=== PATIENT | male | born 1940 | race Hispanic/Latino ===

== ENCOUNTER 2020-04-05 17:08 | Emergency (ER) | payer MEDICARE ==
[~2020-04-05] VITALS: Ht 312.4 cm; Wt 63.5 kg
[~2020-04-05 17:08] MED LIST: BAYER81 MG PO; COUMADIN5 MG PO; FERROUS SULFAT325 MG PO; FINASTERIDE5 MG PO; LANTUS100 UNITS/ SQ; LASIX20 MG PO; LASIX40 MG IV; LEVOTHYROXINE25 MCG PO; LISINOPRIL5 MG PO; LORAZEPAM1 MG PO; NOVOLOG100 UNIT/1 SQ; PROTONIX20 MG PO; TAMSULOSIN HCL0.4 MG PO; TROSPIUM CHLORI20 MG PO; WARFARIN SODIU2.5 MG PO; Z.0.FLOMAX0.4 MG PO; Z.0.LANTUS100 UNIT/1 SQ; Z.0.LEXAPRO10 MG PO; Z.0.LIPITOR80 MG PO; Z.0.LISINOPRIL5 MG PO; Z.0.NOVOLOG100 UNIT/ SQ; Z.0.PLAVIX75 MG PO; [UNRECOGNIZED DRUG - OTHER] PO
--- NOTE | 2020-04-05 17:56 | NUR ---
REPORT TO RONNY SHARMA
--- NOTE | 2020-04-05 18:28 | NUR ---
PT DENIES ABD [PAIN AT THIS TIME, Dr Reveles office given update on patient.
--- OUTSIDE RECORDS SUMMARY | 2020-04-05 18:35 | XMS REPORT | Continuity of Care Document ---
Author Author [facility] Organization [facility] Address [address] [place] [address] Phone Unavailable Care Team Providers Care Feed Handler Name Role Phone RHETT ANDREA Attphys Unavailable Problems This patient has no known problems. Allergies, Adverse Reactions, Alerts This patient has no known allergies or adverse reactions. Medications This patient has no known medications. Procedures This patient has no known procedures. Encounters Start Date/Time End Date/Time Encounter Type Admission Type [facility] Care Department Encounter ID Source 2020-03-31 00:00:00 2020-03-31 00:00:00 Outpatient JAKE ANDREA [facility] [id number] [facility] 2020-03-31 00:00:00 2020-03-31 00:00:00 Outpatient JAKE ANDREA [facility] [id number] [facility] 2020-03-31 00:00:00 2020-03-31 00:00:00 Outpatient JAKE ANDREA [facility] [id number] [facility] 2020-03-31 00:00:00 2020-03-31 00:00:00 Outpatient JAKE ANDREA [facility] [id number] [facility] 2020-03-31 00:00:00 2020-03-31 00:00:00 Outpatient JAKE ANDREA [facility] [id number] [facility] Results This patient has no known results.
--- NOTE | 2020-04-05 18:48 | Emergency Department Note ---
History of Present Illnes History of Present Illness Chief Complaint: General Medicine Complaints History of Present Illness This is a 80 year old male Chief Complaint Comment PT SENT HERE BY DR ORTIZ FOR LAB WORK, PT WAS TOLD HE WAS ANEMIC ON 02/19/20, PT DENIES PAIN OR ANY SYMPTOMS AT THIS TIME. . Historian: Patient, Family Member Arrival Mode: Car Onset (how long ago): week(s) (2) Location: WEAKNESS Quality: GENERALIZED Radiation: Denies non-radiation, Denies back, Denies neck, Denies extremity, Denies abdomen, Denies periumbilical, Denies flank, Denies proximal, Denies distal, Denies other Severity: mild Onset quality: gradual Duration (how long): week(s) (2) Timing of current episode: constant Progression: unchanged Chronicity: new Context: Denies recent illness, Denies recent surgery, Denies recent immobilization, Denies recent travel, Denies trauma/injury, Denies new medications, Denies hx of DVT/PE, Denies non-compliance w/ medications, Denies other Relieving factors: none Exacerbating factors: none Associated symptoms: Reports weakness; Denies denies other symptoms, Denies confusion, Denies chest pain, Denies cough, Denies diaphoresis, Denies fever/chills, Denies headaches, Denies loss of appetite, Denies malaise, Denies nausea/vomiting, Denies rash, Denies seizure, Denies shortness of breath, Denies syncope, Denies other Treatments prior to arrival: none Past Medical/Family History Physician Review I have reviewed the patient's past medical and family history. Any updates have been documented here. 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 Social History Smoking Cessation: Never Smoker Counseling Performed: No Alcohol Use: None Any Illegal Drug Use: No Other Last Tetanus: UNKNOWN Any Pre-Existing Lines (PICC,: No Review of Systems Review of Systems Constitutional: Reports as per HPI EENTM: Reports no symptoms Cardiovascular: Reports no symptoms Respiratory: Reports no symptoms Gastrointestinal: Reports no symptoms Genitourinary: Reports no symptoms Musculoskeletal: Reports no symptoms Integumentary: Reports no symptoms Neurological: Reports no symptoms Psychological: Reports no symptoms Endocrine: Reports no symptoms Hematological/Lymphatic: Reports no symptoms Physical Exam Related Data Allergies: Coded Allergies: iodine (Verified Allergy, Unknown, 04/08/14) vancomycin (Verified Allergy, Unknown, 04/08/14) Triage Vital Signs Vital Signs Date Time Temp Pulse Resp B/P (MAP) Pulse Ox O2 Delivery O2 Flow Rate FiO2 04/05/20 17:30 99.1 80 16 154/68 98 Room Air Vital signs reviewed: Yes Physical Exam CONSTITUTIONAL Constitutional: Present well-developed, Present well-nourished HENT HENT: Present normocephalic, Present atraumatic, Present oropharynx clear/moist, Present nose normal HENT L/R: Present left ext ear normal, Present right ext ear normal EYES Eyes: Reports PERRL, Reports conjunctivae normal; Denies EOM normal, Denies lids normal, Denies left eye discharge, Denies right eye discharge, Denies scleral icterus, Denies other NECK Neck: Present ROM normal; Absent supple, Absent thyromegaly, Absent tracheal deviation, Absent stridor, Absent JVD, Absent cervical adenopathy, Absent carotid bruit, Absent other PULMONARY Pulmonary: Present effort normal, Present breath sounds normal; Absent respiratory distress, Absent rales, Absent rhonchi, Absent chest tenderness, Absent other CARDIOVASCULAR Cardiovascular: Present regular rhythm, Present heart sounds normal, Present capillary refill normal, Present normal rate; Absent irregular rhythm, Absent intact distal pulses, Absent tachycardia, Absent bradycardia, Absent murmur, Absent gallop, Absent friction rub, Absent palpable pulses, Absent strong pulses, Absent weak pulses, Absent LLE edema, Absent RLE edema, Absent other GASTROINTESTINAL Abdominal: Present soft, Present nontender, Present bowel sounds normal; Absent distension, Absent tender, Absent guarding, Absent mass, Absent rebound, Absent hernia, Absent left CVA tenderness, Absent right CVA tenderness, Absent other GENITOURINARY Genitourinary: Present exam deferred; Absent penis normal, Absent rectum normal, Absent prostate normal, Absent guaiac result, Absent penis tenderness, Absent other SKIN Skin: Present warm, Present dry MUSCULOSKELETAL Musculoskeletal: Present ROM normal NEUROLOGICAL Neurological: Present alert, Present oriented x 3, Present no gross motor or sensory deficits PSYCHOLOGICAL Psychological: Present mood/affect normal, Present judgement normal Results Laboratory Lab results reviewed: Yes Assessment & Plan Medical Decision Making MDM ANEMIA DEHYDRATION Reassessment Reassessment BETTER Assessment & Plan Final Impression: (1) Weakness (2) Anemia (3) Dehydration Depart Disposition: HOME, SELF-CARE Last Vital Signs Date Time Temp Pulse Resp B/P (MAP) Pulse Ox O2 Delivery O2 Flow Rate FiO2 04/05/20 17:30 99.1 80 16 154/68 98 Room Air Home Meds Reported Medications Furosemide (LASIX) 40 Mg Tablet, 40 MG IV DAILY, #30 TAB 08/19/14 Tamsulosin Hcl (TAMSULOSIN HCL) 0.4 Mg Cap.er.24h, 0.4 MG PO DAILY 08/19/14 Lorazepam (LORAZEPAM) 1 Mg Tablet, 1 MG PO Q6H PRN for ANXIETY, TAB 08/19/14 Warfarin Sodium (WARFARIN SODIUM) 2.5 Mg Tablet, 2.5 MG PO DAILY, #30 TAB 08/19/14 Trospium Chloride (TROSPIUM CHLORIDE) 20 Mg Tablet, 60 MG PO DAILY 08/19/14 Pantoprazole Sodium (PROTONIX) 20 Mg Tablet.dr, 40 MG PO DAILY 08/19/14 Insulin Aspart (NOVOLOG) 100 Unit/1 Ml Cartridge, 6 UNIT SQ TID 08/19/14 Lisinopril (LISINOPRIL) 5 Mg Tablet, 5 MG PO DAILY 08/19/14 Levothyroxine Sodium (LEVOTHYROXINE SODIUM) 25 Mcg Tablet, 25 MCG PO DAILY 08/19/14 Furosemide (LASIX) 20 Mg Tablet, 20 MG PO DAILY, #30 TAB 08/19/14 Insulin Glargine (LANTUS) 100 Units/Ml Ml, 10 UNIT SQ HS 08/19/14 Finasteride (FINASTERIDE) 5 Mg Tablet, 5 MG PO DAILY, #30 TAB 08/19/14 Ferrous Sulfate (FERROUS SULFATE) 325 Mg Tablet, 325 MG PO DAILY 08/19/14 CAMI MORRISON MD Apr 05, 2020 18:48
[2020-04-05 18:57] VITALS: BP 141/69
== END 2020-04-05 18:59 | disposition home or self-care (01) ==
LOC: FSED 18:00
DX: D64.9 Anemia, unspecified (principal); R53.1 Weakness; E86.0 Dehydration; I10 Essential (primary) hypertension; E11.9 Type 2 diabetes mellitus without complications; E78.5 Hyperlipidemia, unspecified; Z89.512 Acquired absence of left leg below knee; Z95.1 Presence of aortocoronary bypass graft; Z95.810 Presence of automatic (implantable) cardiac defibrillator
CPT/HCPCS: 80053; 80076; 85025; 99283

== ENCOUNTER → 2020-04-19 | Day surgery (SDC) | payer MEDICARE ==
[2020-04-15 11:57] LABS: BASOPHILS # (AUTO) 0.1 (0.0-0.1); BASOPHILS % 0.8 % (0.0-1.0); EOSINOPHILS # (AUTO) 0.2 (0.0-0.4); EOSINOPHILS % 2.6 % (0.0-6.0); HEMATOCRIT 36.5 % (38.2-49.6); HEMOGLOBIN 11.1 g/dL (14.0-18.0); LYMPHOCYTES # (AUTO) 1.6 (1.0-3.2); LYMPHOCYTES % 22.3 % (18.0-39.1); MEAN CORPUSCULAR HEMOGLOBIN 25.9 pg (28-32); MEAN CORPUSCULAR HGB CONC 30.4 g/dL (31-35); MEAN CORPUSCULAR VOLUME 85.3 fL (81-99); MONOCYTES # (AUTO) 0.6 (0.2-0.8); MONOCYTES % 8.6 % (4.4-11.3); NEUTROPHILS # (AUTO) 4.8 (2.1-6.9); NEUTROPHILS % 65.4 % (38.7-80.0); PLATELET COUNT 166 x10e3/uL (140-360); RED BLOOD COUNT 4.28 x10e6/uL (4.3-5.7); RED CELL DISTRIBUTION WIDTH 28.6 % (11.7-14.4)
[~2020-04-19] MED LIST changes: +ASPIRIN81 MG PO; +DIGOXIN250 MCG PO; +ENTRESTO 49 MG1 EACH PO; +EPHEDRINE SULFATE INJ 50 MG/ML VIAL ONE; +GLUCAGON FOR INJ 1 MG VIAL ONE; +HYOSCYAMINE 0.125 MG TAB ONE; +LIDOCAINE HCL 2% LOCAL INJ 5 ML SDV VIAL INJ ONE; +LIPITOR10 MG PO; +METOCLOPRAMIDE HCL 10 MG/2ML VIAL ONE; +METOPROLOL TART50 MG PO; +PRADAXA150 MG PO; +PROPOFOL IV EMULSION 10 MG/ML 20 ML VIAL ONE; +TRESIBA FL100 UNIT/1 INJ
[2020-04-19 15:45] VITALS: BP 125/69
== END | disposition home or self-care (01) ==
LOC: OR 11:32
PROVIDERS: ATTEND Internal Medicine Gastroenterology
DX: K29.50 Unspecified chronic gastritis without bleeding (principal); K63.5 Polyp of colon; K22.8 Other specified diseases of esophagus; Q27.33 Arteriovenous malformation of digestive system vessel; K57.30 Diverticulosis of large intestine without perforation or abscess without bleeding; K62.89 Other specified diseases of anus and rectum; D64.9 Anemia, unspecified; I25.810 Atherosclerosis of coronary artery bypass graft(s) without angina pectoris; I11.0 Hypertensive heart disease with heart failure; I50.9 Heart failure, unspecified; I48.91 Unspecified atrial fibrillation; E11.9 Type 2 diabetes mellitus without complications; I25.2 Old myocardial infarction; I69.354 Hemiplegia and hemiparesis following cerebral infarction affecting left non-dominant side; Z01.812 Encounter for preprocedural laboratory examination; Z20.828 Contact with and (suspected) exposure to other viral communicable diseases; Z88.1 Allergy status to other antibiotic agents; Z91.041 Radiographic dye allergy status; Z79.4 Long term (current) use of insulin; Z95.1 Presence of aortocoronary bypass graft; Z95.0 Presence of cardiac pacemaker
CPT/HCPCS: 36415 ×2; 43239; 45380; 45385; 45388; 82948; 85025; 87106; 87205; 88305; 88312; J1610; J2001; J2704; J2765; U0002; 43235; 44391; 45378